=== PATIENT | female | born 1935 | race Caucasian/White ===

== ENCOUNTER 2018-05-31 17:14 | Inpatient (IN) | payer MEDICARE ==
[~2018-05-31] VITALS: Ht 157.5 cm; Wt 38.6 kg
--- NOTE | ~2018-05-31 | CN ---
PATIENT NAME:MARYCARMEN FERNADNO MEDICAL RECORD: [id number] : 39 LOCATION:D.MS Jules2203 ADMIT DATE: 06/01/18 ACCOUNT: [id number] CONSULTING PHYSICIAN: SHAHID PEDRAZA MD REFERRING PHYSICIAN: JAMESON FRANKLIN MD DATE OF CONSULTATION: 06/10/2018 PSYCHIATRIC CONSULTATION IDENTIFYING DATA: The patient is 82 years old and she is admitted to the hospital on a voluntary basis. CHIEF COMPLAINT: Confusion. HISTORY OF PRESENT ILLNESS: The patient has multiple medical problems including an active infection. She has had a recent decline in ADLs and a recent increase in her confusion. The patient's aunt is with her. The patient is 82 years old. I am not sure about the age of the aunt. She is probably close to that age, but the woman is clearly cognitively intact and I think is giving me a reliable history. She tells me that the patient Marycarmen is independent. She does have a son who helps her and checks on her, but for the most part she lives independently and functions independently. She furthermore tells me that she has been functioning reasonably well until just before she came into the hospital. Clearly, the patient is having some impact on her cognition related to her underlying medical problems. The patient herself is oriented to person, place and situation, but not to the date. Her mood is flat. Her affect is generally appropriate and her thought processes are goal directed. There is no evidence of acute dangerousness to herself or others and no thoughts of self-harm. ASSESSMENT: 1. Delirium secondary to multiple medical factors. 2. Rule out dementia. PLAN: The patient currently is having some occasional behavioral outbursts. I would treat this with a low dose of an antipsychotic say 2 mg of Trilafon on a scheduled basis at bedtime. I might augment that with a low dose of p.r.n. Geodon say 10 mg IM every 4 hours for psychotic agitation. I am optimistic that given the reliable history I received at bedside that once her underlying medical abnormalities are treated, she will return to her premorbid level of functioning, which may indeed include a dementia, but clearly what is going on now is associated with multiple medical factors. I do not think she needs to go to the behavioral unit at this point nor do I think she needs outpatient psychiatric followup. I would only treat her with the antipsychotic briefly say for this hospitalization and maybe a week or two after and follow up could easily be managed by her primary care physician. TRANSINT:[id number] Voice Confirmation ID: [id number] DOCUMENT ID: [id number] CONSULT REPORT [id number] MARYCARMEN FERNANDO PETER MD at 1243 CC: [id number] DICTATION DATE: 06/10/18 1340 WELDER FITTER HELPER: 06/10/18 1352 ADM IN [place] [id number] [place] [id number]
--- NOTE | ~2018-05-31 | CN ---
PATIENT NAME:BROOKS CHAMBERS MEDICAL RECORD: [id number] : 39 LOCATION:D.MS J[facility]2203 ADMIT DATE: 06/01/18 ACCOUNT: [id number] CONSULTING PHYSICIAN: LINDA SANCHEZ MD REFERRING PHYSICIAN: JAMESON FRANKLIN MD DATE OF CONSULTATION: 06/10/2018 CONSULT REQUESTING PHYSICIAN: Jazmyn Gallegos MD REASON FOR CONSULTATION: Acute hypoxic respiratory failure, bilateral pneumonia, sepsis. HISTORY OF PRESENT ILLNESS: Ms. Chambers is an 82-year-old female who has a history of dementia. The patient is a poor historian. The patient was admitted on the 01 of June with worsening mental status changes. She was also febrile and one of the blood culture was positive out of the two. Now, the patient has bilateral infiltrates, increasing oxygen requirement, and she is in metabolic acidosis. REVIEW OF THE SYSTEMS: As in history of present illness. PAST MEDICAL HISTORY: 1. COPD and chronic hypoxic respiratory failure. 2. Chronic kidney disease. 3. Coronary artery disease. 4. Osteoarthritis. 5. Chronic backache. PAST SURGICAL HISTORY: Left hip replacement. ALLERGIES: SHE IS ALLERGIC TO ASPIRIN, CLARITHROMYCIN, AND LATEX. MEDICATIONS: [employer] was reviewed. PERSONAL AND SOCIAL HISTORY: The patient is an ex-smoker. She is nondrinker. FAMILY HISTORY: Noncontributory. PHYSICAL EXAMINATION: GENERAL: Now, the patient is lying comfortably in bed. She is not in acute distress. VITAL SIGNS: The blood pressure is 131/59, pulse is 89, respirations 20, temperature 98.8, and SpO2 is 95% on 9 liters oxymizer. HEENT: Conjunctivae are pink. Sclerae are not icteric. NECK: Neck is supple. There is elevated JVD. CHEST: There are bilateral crackles and wheezes on forceful expiration. HEART: Rate and rhythm are regular. Normal sound. No murmur. ABDOMEN: Abdomen is soft. Bowel sounds present. No hepatosplenomegaly. RECTAL: Deferred. EXTREMITIES: No cyanosis, no clubbing, and no pedal edema. SKIN: The skin is warm. Normal turgor. CENTRAL NERVOUS SYSTEM: The patient is awake and alert, but she is confused. There is no obvious cranial nerve abnormality. LABORATORY DATA: CBC; WBC is 18.6, hemoglobin 10.3, hematocrit 29.1, and the CONSULT REPORT [id number] BROOKS CHAMBERS platelet count is 396. Chemistry; sodium 143, potassium 3.9, BUN is 56, and creatinine 2.3. AST is 95 and ALT is 92. ABG; pH is 7.39, pCO2 is 70.9, pO2 is 64, bicarb is 10.9. IMAGING: Chest radiograph; there is alveolar bilateral infiltrate. IMPRESSION: 1. [id number] hypoxic respiratory failure. 2. Acute exacerbation of COPD. 3. Bilateral pneumonia, most likely hospital acquired. 4. Chronic kidney disease. 5. Metabolic acidosis secondary to sepsis with associated chronic renal failure. 6. Leukocytosis. RECOMMENDATIONS: 1. Adjust the dose of Levaquin. 2. Cefepime IV, vancomycin IV, albuterol/ipratropium nebulizer, Brovana and budesonide nebulizer, methylprednisolone IV. 3. Supplemental oxygen. 4. Bicarb drip at 50 cc per hour, adjust the solution. Dr. Gallegos, thank you for involving me in the care of Ms. Chambers. TRANSINT:[id number] Voice Confirmation ID: [id number] DOCUMENT ID: [id number] LINDA SANCHEZ MD at 1301 CC: JAZMYN GALLEGOS MD [id number] DICTATION DATE: 06/10/181728 WELLNESS ASSISTANT: 06/10/18 1840 DIS IN 06/17/18 [place] [id number] [place] [address]
--- NOTE | ~2018-05-31 | CN ---
PATIENT NAME:BROOKS CHAMBERS MEDICAL RECORD: [id number] : 39 LOCATION:[facility]2203 ADMIT DATE: 06/01/18 ACCOUNT: [id number] CONSULTING PHYSICIAN: SHAHID PEDRAZA MD REFERRING PHYSICIAN: JAMESON FRANKLNI MD DATE OF CONSULTATION: 06/02/2018 Mrs. Chambers is 82 years old and was having increased confusion and inability to process or conduct her ADLs. She was accepted to the behavioral unit a couple of days ago, but when she went to the Emergency Room for medical clearance, she was found to be septic. She is currently admitted to the medical floor and being treated for urosepsis and as I understand it is growing a gram-negative stephen in her urine. Once she is medically stabilized, if these symptoms persist, she may be transferred to the behavioral unit. TRANSINT:[id number] Voice Confirmation ID: [id number] DOCUMENT ID: [id number] SHAHID PEDRAZA MD at 1322 CC: [id number] DICTATION DATE: 06/02/18 1214 COMPACTOR DRIVER: 06/02/18 1229 ADM IN [place] [id number] [place] [address]
[2018-05-31 18:11] VITALS: BP 161/75; BMI 15.5
[2018-05-31] MEDS ORDERED: LEVOTHYROXINE50 MCG PO (18:33)
[2018-05-31] MEDS ORDERED: PROTONIX40 MG PO (18:33)
[2018-05-31] MEDS ORDERED: PLAVIX75 MG PO (18:33)
[2018-05-31] MEDS ORDERED: CORDARONE200 MG PO (18:34)
[2018-05-31] MEDS ORDERED: PAXIL20 MG PO (18:34)
[2018-05-31] MEDS ORDERED: GLUCOPHAGE XR750 MG PO (18:38)
[2018-05-31] MEDS ORDERED: COZAAR25 MG PO (18:40)
[2018-05-31] MEDS ORDERED: HYZAAR 50-12.51 TAB PO (18:40)
[2018-05-31] MEDS ORDERED: REMERON30 MG PO (18:41)
[2018-05-31] MEDS ORDERED: MEGACE40 MG PO (18:41)
[2018-05-31] MEDS ORDERED: ZOCOR20 MG PO (18:41)
[2018-05-31 19:13] LABS: BASOPHILS 0.3 % (0-2); EOSINOPHILS 1.3 % (0-7); HEMOGLOBIN 8.9 g/dL (12-16); IMMATURE GRANULOCYTES 0.2 % (0-5); LYMPHOCYTES 9.7 % (15-50); MCH 31.7 pg (26.0-34.0); MCHC 34.2 g/dL (31.0-37.0); MCV 92.5 fL (80.0-100.0); MONOCYTES 6.2 % (2-11); NEUTROPHILS 82.3 % (40-80); PLATELET COUNT 311 10x3/uL (130-400); RBC 2.81 10x6/uL (4.00-5.40); RDW 13.5 % (11.5-14.5); WBC 10.2 10x3/uL (4.8-10.8)
[2018-05-31 20:00] VITALS: BP 154/70
[2018-05-31 20:02] LABS: ALBUMIN 2.8 g/dL (3.4-5.0); ANION GAP 15.9 mmol/L (8-16); BILIRUBIN - TOTAL 0.34 mg/dL (0.2-1.3); CALCIUM 8.1 mg/dL (8.5-10.1); CARBON DIOXIDE 18.9 mmol/L (21.0-32.0); CREATININE - SERUM 2.4 mg/dL (0.6-1.3); POTASSIUM - SERUM 3.8 mmol/L (3.5-5.1); PROTEIN - SERUM 6.5 g/dL (6.4-8.2); THYROID STIMULATING HORMONE 1.71 uIU/mL (0.36-3.74)
[2018-06-01] VITALS: BP 130/64
[2018-06-01 04:00] VITALS: BP 147/75
[2018-06-01 09:53] VITALS: BP 158/74
[2018-06-01 11:13] LABS: % SATURATION 11 % (15-55); IRON 26 ug/dl (35-150); TOTAL IRON BIND CAPACITY 236 ug/dl (260-445); UNSAT IRON BIND CAPACITY 210 ug/dl (150-375)
[2018-06-01 12:15] VITALS: Ht 157.5 cm; Wt 38.6 kg
[2018-06-01 13:08] VITALS: BP 155/81
[2018-06-01 15:12] LABS: APPEARANCE CLEAR (CLEAR); BILIRUBIN NEGATIVE (NEGATIVE); COLOR YELLOW (YELLOW); GLUCOSE NEGATIVE (NEGATIVE); KETONE NEGATIVE (NEGATIVE); NITRITE NEGATIVE (NEGATIVE); PROTEIN NEGATIVE (NEGATIVE); UROBILINOGEN NORMAL (NORMAL)
[2018-06-01 20:00] VITALS: BP 148/76
[2018-06-02 04:00] VITALS: BP 159/83
[2018-06-02 04:34] LABS: BASOPHILS 0.3 % (0-2); HEMATOCRIT 28.9 % (36.0-48.0); HEMOGLOBIN 9.9 g/dL (12-16); IMMATURE GRANULOCYTES 0.3 % (0-5); LYMPHOCYTES 11.2 % (15-50); MCH 31.8 pg (26.0-34.0); MCHC 34.3 g/dL (31.0-37.0); MCV 92.9 fL (80.0-100.0); MEAN PLATELET VOLUME 11.4 fL (7.4-10.4); MONOCYTES 7.5 % (2-11); NEUTROPHILS 79.7 % (40-80); PLATELET COUNT 339 10x3/uL (130-400); RBC 3.11 10x6/uL (4.00-5.40); RDW 13.6 % (11.5-14.5); WBC 10.8 10x3/uL (4.8-10.8)
[2018-06-02 04:44] LABS: ANION GAP 16.1 mmol/L (8-16); CALCIUM 8.4 mg/dL (8.5-10.1); CARBON DIOXIDE 20.8 mmol/L (21.0-32.0); CREATININE - SERUM 2.6 mg/dL (0.6-1.3); POTASSIUM - SERUM 3.9 mmol/L (3.5-5.1)
[2018-06-02 08:17] VITALS: BP 153/88
[2018-06-02 08:20] LABS: FOLATE (FOLIC ACID) - SERUM 11.1 ng/mL (>3.0)
[2018-06-02 12:37] VITALS: BP 140/72
[2018-06-02 20:00] VITALS: BP 130/68
[2018-06-03] VITALS: BP 121/70
[2018-06-03 04:00] VITALS: BP 170/83
[2018-06-03 04:38] LABS: BASOPHILS 0.2 % (0-2); EOSINOPHILS 0.8 % (0-7); HEMATOCRIT 29.3 % (36.0-48.0); HEMOGLOBIN 10.1 g/dL (12-16); IMMATURE GRANULOCYTES 0.2 % (0-5); LYMPHOCYTES 4.7 % (15-50); MCH 32.5 pg (26.0-34.0); MCHC 34.5 g/dL (31.0-37.0); MCV 94.2 fL (80.0-100.0); MEAN PLATELET VOLUME 11.5 fL (7.4-10.4); MONOCYTES 6.3 % (2-11); NEUTROPHILS 87.8 % (40-80); PLATELET COUNT 344 10x3/uL (130-400); RBC 3.11 10x6/uL (4.00-5.40); RDW 13.6 % (11.5-14.5); WBC 13.5 10x3/uL (4.8-10.8)
[2018-06-03 04:54] LABS: ANION GAP 18.7 mmol/L (8-16); CALCIUM 8.3 mg/dL (8.5-10.1); CARBON DIOXIDE 18.3 mmol/L (21.0-32.0); CREATININE - SERUM 2.7 mg/dL (0.6-1.3); VANCOMYCIN - RANDOM 15.2 ug/mL (10.0-20.0)
[2018-06-03 08:37] VITALS: BP 172/87
[2018-06-03 13:03] VITALS: BP 141/64
[2018-06-03 16:18] VITALS: BP 154/54
[2018-06-03 21:42] VITALS: BP 130/59
[2018-06-04] VITALS (7 sets, daily range): BP systolic 135–169; BP diastolic 77–93
[2018-06-04 06:13] LABS: ANION GAP 19.4 mmol/L (8-16); CALCIUM 8.2 mg/dL (8.5-10.1); CREATININE - SERUM 2.2 mg/dL (0.6-1.3); VANCOMYCIN - RANDOM 9.6 ug/mL (10.0-20.0)
[2018-06-04 06:15] LABS: CARBON DIOXIDE 13.6 mmol/L (21.0-32.0)
[2018-06-04 06:16] LABS: BASOPHILS 0.3 % (0-2); EOSINOPHILS 0.4 % (0-7); HEMATOCRIT 26.6 % (36.0-48.0); HEMOGLOBIN 8.9 g/dL (12-16); IMMATURE GRANULOCYTES 0.3 % (0-5); LYMPHOCYTES 3.7 % (15-50); MCH 31.9 pg (26.0-34.0); MCHC 33.5 g/dL (31.0-37.0); MCV 95.3 fL (80.0-100.0); MEAN PLATELET VOLUME 11.3 fL (7.4-10.4); MONOCYTES 6.4 % (2-11); NEUTROPHILS 88.9 % (40-80); PLATELET COUNT 341 10x3/uL (130-400); RBC 2.79 10x6/uL (4.00-5.40); RDW 13.5 % (11.5-14.5); WBC 14.4 10x3/uL (4.8-10.8)
[2018-06-05 04:00] VITALS: BP 145/71
[2018-06-05 06:43] LABS: BASOPHILS 0.3 % (0-2); HEMOGLOBIN 8.4 g/dL (12-16); IMMATURE GRANULOCYTES 0.4 % (0-5); LYMPHOCYTES 5.4 % (15-50); MCH 31.6 pg (26.0-34.0); MCHC 33.6 g/dL (31.0-37.0); MEAN PLATELET VOLUME 10.7 fL (7.4-10.4); MONOCYTES 7.6 % (2-11); NEUTROPHILS 84.3 % (40-80); PLATELET COUNT 359 10x3/uL (130-400); RBC 2.66 10x6/uL (4.00-5.40); RDW 13.6 % (11.5-14.5); WBC 11.4 10x3/uL (4.8-10.8)
[2018-06-05 07:06] LABS: ANION GAP 17.1 mmol/L (8-16); CALCIUM 8.3 mg/dL (8.5-10.1); CARBON DIOXIDE 16.7 mmol/L (21.0-32.0); CREATININE - SERUM 2.3 mg/dL (0.6-1.3); POTASSIUM - SERUM 3.8 mmol/L (3.5-5.1); VANCOMYCIN - RANDOM 16.3 ug/mL (10.0-20.0)
[2018-06-05 10:22] VITALS: BP 159/72
[2018-06-05 16:42] VITALS: BP 145/75
[2018-06-06 03:00] VITALS: BP 180/75
[2018-06-06 04:29] LABS: BASOPHILS 0.4 % (0-2); EOSINOPHILS 3.2 % (0-7); HEMATOCRIT 25.5 % (36.0-48.0); HEMOGLOBIN 8.4 g/dL (12-16); IMMATURE GRANULOCYTES 0.5 % (0-5); LYMPHOCYTES 7.4 % (15-50); MCHC 32.9 g/dL (31.0-37.0); MCV 94.1 fL (80.0-100.0); MEAN PLATELET VOLUME 10.9 fL (7.4-10.4); MONOCYTES 7.2 % (2-11); NEUTROPHILS 81.3 % (40-80); PLATELET COUNT 395 10x3/uL (130-400); RBC 2.71 10x6/uL (4.00-5.40); WBC 10.9 10x3/uL (4.8-10.8)
[2018-06-06 04:57] LABS: CALCIUM 8.4 mg/dL (8.5-10.1); CREATININE - SERUM 2.1 mg/dL (0.6-1.3)
[2018-06-06 09:04] VITALS: BP 121/69
[2018-06-06 13:13] VITALS: BP 122/57
[2018-06-06 17:01] VITALS: BP 111/66
[2018-06-06 20:00] VITALS: BP 138/66
[2018-06-07 04:32] LABS: BASOPHILS 0.3 % (0-2); EOSINOPHILS 2.6 % (0-7); HEMATOCRIT 23.6 % (36.0-48.0); HEMOGLOBIN 7.8 g/dL (12-16); IMMATURE GRANULOCYTES 0.7 % (0-5); LYMPHOCYTES 7.8 % (15-50); MCH 31.7 pg (26.0-34.0); MCHC 33.1 g/dL (31.0-37.0); MCV 95.9 fL (80.0-100.0); MEAN PLATELET VOLUME 10.7 fL (7.4-10.4); MONOCYTES 7.9 % (2-11); NEUTROPHILS 80.7 % (40-80); PLATELET COUNT 415 10x3/uL (130-400); RBC 2.46 10x6/uL (4.00-5.40); RDW 14.2 % (11.5-14.5); WBC 11.5 10x3/uL (4.8-10.8)
[2018-06-07 05:01] LABS: ALBUMIN 2.1 g/dL (3.4-5.0); ANION GAP 18.3 mmol/L (8-16); BILIRUBIN - TOTAL 0.26 mg/dL (0.2-1.3); CALCIUM 8.3 mg/dL (8.5-10.1); CARBON DIOXIDE 16.6 mmol/L (21.0-32.0); POTASSIUM - SERUM 3.9 mmol/L (3.5-5.1); PROTEIN - SERUM 6.2 g/dL (6.4-8.2); VANCOMYCIN - RANDOM 20.3 ug/mL (10.0-20.0)
[2018-06-07 09:49] VITALS: BP 155/77
[2018-06-07 12:45] VITALS: BP 144/78
[2018-06-07 16:40] VITALS: BP 138/72
[2018-06-07 20:35] VITALS: BP 129/60
[2018-06-08] VITALS (7 sets, daily range): BP systolic 125–153; BP diastolic 55–79
[2018-06-08 07:49] LABS: BASOPHILS 0.4 % (0-2); EOSINOPHILS 2.4 % (0-7); HEMATOCRIT 22.1 % (36.0-48.0); IMMATURE GRANULOCYTES 0.6 % (0-5); LYMPHOCYTES 6.5 % (15-50); MCH 31.2 pg (26.0-34.0); MCV 94.4 fL (80.0-100.0); MEAN PLATELET VOLUME 10.5 fL (7.4-10.4); MONOCYTES 7.6 % (2-11); NEUTROPHILS 82.5 % (40-80); PLATELET COUNT 402 10x3/uL (130-400); RBC 2.34 10x6/uL (4.00-5.40); RDW 14.5 % (11.5-14.5); WBC 10.9 10x3/uL (4.8-10.8)
[2018-06-08 08:06] LABS: HEMOGLOBIN 7.3 g/dL (12-16)
[2018-06-08 08:12] LABS: ANION GAP 18.7 mmol/L (8-16); BILIRUBIN - TOTAL 0.23 mg/dL (0.2-1.3); CARBON DIOXIDE 13.4 mmol/L (21.0-32.0); POTASSIUM - SERUM 4.1 mmol/L (3.5-5.1); PROTEIN - SERUM 5.8 g/dL (6.4-8.2); VANCOMYCIN - RANDOM 14.9 ug/mL (10.0-20.0)
[2018-06-08 13:04] LABS: IRON 41 ug/dl (35-150); UNSAT IRON BIND CAPACITY 126 ug/dl (150-375)
[2018-06-08 13:05] LABS: % SATURATION 24 % (15-55); TOTAL IRON BIND CAPACITY 167 ug/dl (260-445)
[2018-06-08] MEDS ORDERED: DULCOLAX10 MG/SUPP RC (13:18)
[2018-06-08] MEDS ORDERED: DULCOLAX5 MG PO (13:18)
[2018-06-08] MEDS ORDERED: FERROUS SULFAT325 MG PO (13:19)
[2018-06-09 05:34] VITALS: BP 144/79
[2018-06-09 06:25] LABS: ALBUMIN 2.4 g/dL (3.4-5.0); ANION GAP 21.8 mmol/L (8-16); BILIRUBIN - TOTAL 0.67 mg/dL (0.2-1.3); CALCIUM 8.6 mg/dL (8.5-10.1); CARBON DIOXIDE 14.3 mmol/L (21.0-32.0); CREATININE - SERUM 2.3 mg/dL (0.6-1.3); POTASSIUM - SERUM 4.1 mmol/L (3.5-5.1)
[2018-06-09 06:28] LABS: BASOPHILS 0.1 % (0-2); EOSINOPHILS 0 % (0-7); HEMATOCRIT 31.2 % (36.0-48.0); HEMOGLOBIN 10.5 g/dL (12-16); IMMATURE GRANULOCYTES 0.6 % (0-5); LYMPHOCYTES 2.2 % (15-50); MCHC 33.7 g/dL (31.0-37.0); MEAN PLATELET VOLUME 10.8 fL (7.4-10.4); MONOCYTES 5.5 % (2-11); NEUTROPHILS 91.6 % (40-80); PLATELET COUNT 450 10x3/uL (130-400); RBC 3.39 10x6/uL (4.00-5.40); RDW 16.8 % (11.5-14.5); WBC 20.2 10x3/uL (4.8-10.8)
[2018-06-09 09:03] VITALS: BP 150/80
[2018-06-09 09:19] LABS: FOLATE (FOLIC ACID) - SERUM 7.8 ng/mL (>3.0)
[2018-06-09 13:16] VITALS: BP 140/70
[2018-06-09 16:42] VITALS: BP 136/69
[2018-06-09 19:59] VITALS: BP 118/61
[2018-06-09 23:55] VITALS: BP 136/69
[2018-06-10 04:00] VITALS: BP 130/68
[2018-06-10 05:14] LABS: HEMATOCRIT 29.1 % (36.0-48.0); HEMOGLOBIN 10.3 g/dL (12-16); LYMPHOCYTES 2.4 % (15-50); MCH 32.3 pg (26.0-34.0); MCHC 35.4 g/dL (31.0-37.0); MCV 91.2 fL (80.0-100.0); MEAN PLATELET VOLUME 9.9 fL (7.4-10.4); NEUTROPHILS 92.1 % (40-80); PLATELET COUNT 396 10x3/uL (130-400); RBC 3.19 10x6/uL (4.00-5.40); RDW 17.3 % (11.5-14.5); WBC 18.6 10x3/uL (4.8-10.8)
[2018-06-10 05:22] LABS: ALBUMIN 2.3 g/dL (3.4-5.0); ANION GAP 26.4 mmol/L (8-16); BILIRUBIN - TOTAL 0.59 mg/dL (0.2-1.3); CALCIUM 8.9 mg/dL (8.5-10.1); CARBON DIOXIDE 12.5 mmol/L (21.0-32.0); CREATININE - SERUM 2.3 mg/dL (0.6-1.3); POTASSIUM - SERUM 3.9 mmol/L (3.5-5.1); PROTEIN - SERUM 5.9 g/dL (6.4-8.2)
[2018-06-10 08:34] VITALS: BP 145/66
[2018-06-10 13:01] VITALS: BP 130/72
[2018-06-10 16:40] VITALS: BP 131/59
[2018-06-10 20:00] VITALS: BP 127/72
[2018-06-11 04:00] VITALS: BP 141/77
[2018-06-11 05:30] LABS: BASOPHILS 0.1 % (0-2); EOSINOPHILS 0 % (0-7); HEMOGLOBIN 8.8 g/dL (12-16); IMMATURE GRANULOCYTES 0.4 % (0-5); LYMPHOCYTES 1.2 % (15-50); MCH 30.7 pg (26.0-34.0); MCHC 33.8 g/dL (31.0-37.0); MCV 90.6 fL (80.0-100.0); MEAN PLATELET VOLUME 10.1 fL (7.4-10.4); MONOCYTES 1.4 % (2-11); NEUTROPHILS 96.9 % (40-80); PLATELET COUNT 400 10x3/uL (130-400); RBC 2.87 10x6/uL (4.00-5.40); RDW 16.1 % (11.5-14.5); WBC 17.1 10x3/uL (4.8-10.8)
[2018-06-11 05:54] LABS: ALBUMIN 1.9 g/dL (3.4-5.0); BILIRUBIN - TOTAL 0.63 mg/dL (0.2-1.3); CALCIUM 8.5 mg/dL (8.5-10.1); CARBON DIOXIDE 12.5 mmol/L (21.0-32.0); CREATININE - SERUM 2.2 mg/dL (0.6-1.3); POTASSIUM - SERUM 3.5 mmol/L (3.5-5.1); PROTEIN - SERUM 6.2 g/dL (6.4-8.2)
[2018-06-11 08:06] VITALS: BP 140/74
[2018-06-11 11:41] VITALS: BP 160/71
[2018-06-11 17:12] VITALS: BP 147/70
[2018-06-11 20:00] VITALS: BP 152/77
[2018-06-11 23:43] VITALS: BP 157/77
[2018-06-12 04:00] VITALS: BP 154/88
[2018-06-12 05:12] LABS: BASOPHILS 0.1 % (0-2); EOSINOPHILS 0 % (0-7); HEMATOCRIT 25.5 % (36.0-48.0); HEMOGLOBIN 8.9 g/dL (12-16); IMMATURE GRANULOCYTES 0.3 % (0-5); LYMPHOCYTES 3.2 % (15-50); MCHC 34.9 g/dL (31.0-37.0); MCV 88.9 fL (80.0-100.0); MONOCYTES 1.7 % (2-11); NEUTROPHILS 94.7 % (40-80); PLATELET COUNT 367 10x3/uL (130-400); RBC 2.87 10x6/uL (4.00-5.40); RDW 15.8 % (11.5-14.5); WBC 18.9 10x3/uL (4.8-10.8)
[2018-06-12 05:33] LABS: ALBUMIN 2.1 g/dL (3.4-5.0); BILIRUBIN - TOTAL 0.69 mg/dL (0.2-1.3); CALCIUM 8.3 mg/dL (8.5-10.1); CREATININE - SERUM 2.3 mg/dL (0.6-1.3); PROTEIN - SERUM 5.7 g/dL (6.4-8.2)
[2018-06-12 05:34] LABS: ANION GAP 18.6 mmol/L (8-16); CARBON DIOXIDE 22.2 mmol/L (21.0-32.0); POTASSIUM - SERUM 2.8 mmol/L (3.5-5.1)
[2018-06-12 10:02] LABS: MAGNESIUM - SERUM 2.2 mg/dL (1.8-2.4); PHOSPHOROUS 4.2 mg/dL (2.5-4.9)
[2018-06-12 10:10] VITALS: BP 172/75
[2018-06-12 15:04] VITALS: BP 140/79
[2018-06-12 20:23] VITALS: BP 128/69
[2018-06-13 03:41] VITALS: BP 144/72
[2018-06-13 08:20] VITALS: BP 142/68
[2018-06-13 11:53] VITALS: BP 177/90
[2018-06-13 16:20] VITALS: BP 157/73
[2018-06-13 16:29] LABS: BASOPHILS 0.1 % (0-2); EOSINOPHILS 0 % (0-7); HEMATOCRIT 26.3 % (36.0-48.0); HEMOGLOBIN 8.9 g/dL (12-16); IMMATURE GRANULOCYTES 0.7 % (0-5); LYMPHOCYTES 6.8 % (15-50); MCH 31.3 pg (26.0-34.0); MCHC 33.8 g/dL (31.0-37.0); MONOCYTES 1.1 % (2-11); NEUTROPHILS 91.3 % (40-80); RBC 2.84 10x6/uL (4.00-5.40); WBC 17.3 10x3/uL (4.8-10.8)
[2018-06-13 16:30] LABS: MCV 92.6 fL (80.0-100.0); PLATELET COUNT 185 10x3/uL (130-400)
[2018-06-13 16:58] LABS: ALBUMIN 2.1 g/dL (3.4-5.0); BILIRUBIN - TOTAL 0.6 mg/dL (0.2-1.3); CALCIUM 8.3 mg/dL (8.5-10.1); CREATININE - SERUM 2.5 mg/dL (0.6-1.3); PROTEIN - SERUM 5.9 g/dL (6.4-8.2)
[2018-06-13 17:29] LABS: CARBON DIOXIDE 29.2 mmol/L (21.0-32.0); POTASSIUM - SERUM 3.2 mmol/L (3.5-5.1)
[2018-06-13 22:04] VITALS: BP 127/76
[2018-06-14 03:53] VITALS: BP 141/48
[2018-06-14 04:49] LABS: BASOPHILS 0.1 % (0-2); EOSINOPHILS 0 % (0-7); HEMATOCRIT 27.1 % (36.0-48.0); HEMOGLOBIN 8.9 g/dL (12-16); IMMATURE GRANULOCYTES 0.4 % (0-5); LYMPHOCYTES 2.7 % (15-50); MCH 30.6 pg (26.0-34.0); MCHC 32.8 g/dL (31.0-37.0); MCV 93.1 fL (80.0-100.0); MEAN PLATELET VOLUME 10.2 fL (7.4-10.4); NEUTROPHILS 95.8 % (40-80); PLATELET COUNT 191 10x3/uL (130-400); RBC 2.91 10x6/uL (4.00-5.40); WBC 16.4 10x3/uL (4.8-10.8)
[2018-06-14 05:07] LABS: ALBUMIN 2.1 g/dL (3.4-5.0); ANION GAP 17.2 mmol/L (8-16); BILIRUBIN - TOTAL 0.83 mg/dL (0.2-1.3); C-REACTIVE PROTEIN 15.2 mg/dL (0.0-0.9); CARBON DIOXIDE 27.4 mmol/L (21.0-32.0); CREATININE - SERUM 2.4 mg/dL (0.6-1.3); MAGNESIUM - SERUM 2.2 mg/dL (1.8-2.4); PHOSPHOROUS 4.3 mg/dL (2.5-4.9); POTASSIUM - SERUM 3.6 mmol/L (3.5-5.1); PROTEIN - SERUM 5.8 g/dL (6.4-8.2)
[2018-06-14 08:03] VITALS: BP 145/80
[2018-06-14 11:59] VITALS: BP 149/78
[2018-06-14 17:24] VITALS: BP 134/75
[2018-06-14 21:31] VITALS: BP 138/60
[2018-06-15 05:13] VITALS: BP 120/71
[2018-06-15 08:20] VITALS: BP 144/75
[2018-06-15 11:51] VITALS: BP 134/84
[2018-06-15 12:18] LABS: ANA REFLEX - DIRECT Negative (Negative)
[2018-06-15 15:52] VITALS: BP 146/89
[2018-06-15 20:28] LABS: CREATININE - URINE 56.6 mg/dL (30-125)
[2018-06-15 20:52] VITALS: BP 135/76
[2018-06-15 21:06] LABS: PROTEIN - URINE 155.4 mg/dL (0.0-11.9)
[2018-06-15 21:07] LABS: CREATININE - SERUM 2.4 mg/dL (0.6-1.3)
[2018-06-15 21:11] LABS: CREATININE - URINE 155.4 mg/dL (30-125)
[2018-06-16 04:22] VITALS: BP 144/75
[2018-06-16 08:48] VITALS: BP 136/76
[2018-06-16 12:10] LABS: BASOPHILS 0 % (0-2); EOSINOPHILS 0.1 % (0-7); HEMATOCRIT 28.9 % (36.0-48.0); HEMOGLOBIN 9.5 g/dL (12-16); IMMATURE GRANULOCYTES 0.6 % (0-5); LYMPHOCYTES 2.9 % (15-50); MCH 31.3 pg (26.0-34.0); MCHC 32.9 g/dL (31.0-37.0); MCV 95.1 fL (80.0-100.0); MEAN PLATELET VOLUME 10.9 fL (7.4-10.4); MONOCYTES 0.5 % (2-11); NEUTROPHILS 95.9 % (40-80); RBC 3.04 10x6/uL (4.00-5.40); RDW 15.9 % (11.5-14.5); WBC 19.6 10x3/uL (4.8-10.8)
[2018-06-16 12:12] LABS: PLATELET COUNT 138 10x3/uL (130-400)
[2018-06-16 12:45] VITALS: BP 150/93
[2018-06-16 12:45] LABS: ALBUMIN 2.4 g/dL (3.4-5.0); ANION GAP 15.8 mmol/L (8-16); BILIRUBIN - TOTAL 0.78 mg/dL (0.2-1.3); CALCIUM 8.3 mg/dL (8.5-10.1); CARBON DIOXIDE 27.5 mmol/L (21.0-32.0); CREATININE - SERUM 2.7 mg/dL (0.6-1.3); POTASSIUM - SERUM 4.3 mmol/L (3.5-5.1); PROTEIN - SERUM 5.7 g/dL (6.4-8.2)
[2018-06-16 16:57] VITALS: BP 141/80
[2018-06-16 20:00] VITALS: BP 128/75
[2018-06-17 01:02] VITALS: BP 142/78
[2018-06-17 08:54] VITALS: BP 141/88
[2018-06-17 13:08] VITALS: BP 153/87
== END 2018-06-17 14:15 | disposition home health service (06) | DRG 871 ==
LOC: D.MS 17:14 → OBSVTIME 17:17 → D.MS 06-01 14:18
PROVIDERS: Family Medicine; Internal Medicine Nephrology; Internal Medicine Pulmonary Disease
PROC: 05HB33Z Insertion of Infusion Device into Right Basilic Vein, Percutaneous Approach (ICD-10-PCS; principal; 2018-06-13)
PROC: B54MZZA Ultrasonography of Right Upper Extremity Veins, Guidance (ICD-10-PCS; 2018-06-13)
DX: A41.9 Sepsis, unspecified organism (principal); G93.41 Metabolic encephalopathy; I50.43 Acute on chronic combined systolic (congestive) and diastolic (congestive) heart failure; J96.21 Acute and chronic respiratory failure with hypoxia; J18.9 Pneumonia, unspecified organism; E43 Unspecified severe protein-calorie malnutrition; N39.0 Urinary tract infection, site not specified; N17.9 Acute kidney failure, unspecified; Z68.1 Body mass index [BMI] 19.9 or less, adult; I13.0 Hypertensive heart and chronic kidney disease with heart failure and stage 1 through stage 4 chronic kidney disease, or unspecified chronic kidney disease; E87.2 Acidosis; D50.9 Iron deficiency anemia, unspecified; E11.40 Type 2 diabetes mellitus with diabetic neuropathy, unspecified; T46.2X5A Adverse effect of other antidysrhythmic drugs, initial encounter; F03.90 Unspecified dementia, unspecified severity, without behavioral disturbance, psychotic disturbance, mood disturbance, and anxiety; E53.8 Deficiency of other specified B group vitamins; K59.00 Constipation, unspecified; J32.9 Chronic sinusitis, unspecified; D64.9 Anemia, unspecified; I08.1 Rheumatic disorders of both mitral and tricuspid valves; Y95 Nosocomial condition; E11.22 Type 2 diabetes mellitus with diabetic chronic kidney disease; N18.9 Chronic kidney disease, unspecified; R15.9 Full incontinence of feces; R32 Unspecified urinary incontinence; R13.12 Dysphagia, oropharyngeal phase; Y92.239 Unspecified place in hospital as the place of occurrence of the external cause; J47.9 Bronchiectasis, uncomplicated